=== PATIENT | female | born 1960 | race Caucasian/White ===

== ENCOUNTER 2025-02-13 12:56 | Emergency (ER) | payer BC ==
[2025-02-13 13:16] VITALS: BP 159/70; PULSE 78; RESP 20; TEMP 98.8; BMI 34.3
[2025-02-13 13:55] LABS: ABSOLUTE IMMATURE GRANULOCYTES 0.05 x10^3/uL (0.0-0.031); BASOPHILS # 0.02 x10^3/uL (0.01-0.08); EOSINOPHIL % 0.2 % (0.7-5.8); EOSINOPHILS # 0.02 x10^3/uL (0.04-0.36); MCHC 31.6 g/dl (32.2-35.5); MEAN CELL VOLUME 89.1 fl (79.4-94.8); MEAN PLT VOLUME 10.9 fl (9.4-12.3); MONOCYTE # 0.57 x10^3/uL (0.24-0.86); MONOCYTE % 4.8 % (4.7-12.5); RDW 13.6 % (12.4-16.4)
[2025-02-13] MEDS ORDERED: FAMOTIDINE 20 MG/50 ML IVPB 20 MG/50 ML MG IVPB ONE (13:58)
[2025-02-13] MEDS ORDERED: ONDANSETRON 4 MG/2 ML VIAL ONE (13:58)
[2025-02-13] MEDS ORDERED: ACETAMINOPHEN INJECTION 100 ML ONE (13:58)
[2025-02-13] MEDS ORDERED: MAG HYDROX/AL HYDROX/SIMETH 30 ML UNIT-DOSE CUP ONE (13:58)
[2025-02-13] MEDS: MAG HYDROX/AL HYDROX/SIMETH 30 ML UNIT-DOSE CUP PO ONE (14:01)
[2025-02-13] MEDS: ACETAMINOPHEN 1000 MG/100 ML BAG IVPB ONE (14:02)
[2025-02-13] MEDS: FAMOTIDINE 20 MG/50 ML IVPB 20 MG/50 ML MG IVPB ONE (14:02)
[2025-02-13] MEDS: ONDANSETRON 4 MG/2 ML VIAL IVPUSH ONE (14:03)
[2025-02-13] MEDS: morphine CARPU-JECT 4 MG/1 ML DISP.SYRIN IVPUSH ONE (14:06)
[2025-02-13] MEDS: ONDANSETRON 4 MG/2 ML VIAL IVPB ONE (14:10)
[2025-02-13 14:23] LABS: CO2 27.0 mmol/L (21-32); GLUCOSE,RANDOM 106.0 mg/dL (74-106)
[2025-02-13 14:27] LABS: CREATININE 0.8 mg/dL (0.55-1.3); SGOT/AST 331.0 U/L (15-37); SGPT/ALT 282.0 U/L (13-61)
[2025-02-13 14:28] LABS: TOT PROT 6.6 g/dl (6.4-8.2)
[2025-02-13 14:30] LABS: ALK PHOS 324.0 U/L (45-117)
[2025-02-13 15:59] LABS: HIV INTERPRETATION NEGATIVE (NEGATIVE)
[2025-02-13 16:04] LABS: HCV DIAGNOSTIC IN-HOUSE W/RFLX NON-REACTIVE (NONREACTIVE)
[2025-02-13 17:03] LABS: URINE APPEARANCE Clear; URINE BILIRUBIN Negative (NEGATIVE); URINE COLOR Other; URINE GLUCOSE (UA) Negative (NEGATIVE); URINE KETONE Negative (NEGATIVE); URINE LEUK ESTERASE Negative (NEGATIVE); URINE NITRITE Negative (NEGATIVE); URINE PROTEIN Negative (NEGATIVE); URINE UROBILINOGEN 1.0 mg/dL (0.2-1.0)
[2025-02-13] MEDS ORDERED: PIPERACILLIN/TAZOB 4.5 GM 4.5 GM/100 ML BAG IVPB ONE (17:24)
[2025-02-13] MEDS: PIPERACILLIN/TAZOB 4.5 GM 4.5 GM in DEXTROSE 5%-WATER 100 ML IVPB ONE (17:26)
[2025-02-13] MEDS: SODIUM CHLORIDE 0.9% 500 ML INFUS.BAG IV ONE (17:27)
== END 2025-02-13 21:36 | disposition short-term general hospital (02) ==
LOC: JER 12:56
PROC: 3E033GC Introduction of Other Therapeutic Substance into Peripheral Vein, Percutaneous Approach (ICD-10-PCS; principal; 2025-02-13)
PROC: 3E03329 Introduction of Other Anti-infective into Peripheral Vein, Percutaneous Approach (ICD-10-PCS; 2025-02-13)
PROC: 3E033NZ Introduction of Analgesics, Hypnotics, Sedatives into Peripheral Vein, Percutaneous Approach (ICD-10-PCS; 2025-02-13)
PROC: 3E033NZ Introduction of Analgesics, Hypnotics, Sedatives into Peripheral Vein, Percutaneous Approach (ICD-10-PCS; 2025-02-13)
PROC: 3E033GC Introduction of Other Therapeutic Substance into Peripheral Vein, Percutaneous Approach (ICD-10-PCS; 2025-02-13)
DX: K86.89 Other specified diseases of pancreas (principal); K83.8 Other specified diseases of biliary tract; R10.13 Epigastric pain; R10.30 Lower abdominal pain, unspecified; R07.9 Chest pain, unspecified; M54.9 Dorsalgia, unspecified; R11.0 Nausea; R06.02 Shortness of breath
CPT/HCPCS: 36415; 71045-TC-FY; 71275-TC; 74174-TC; 80053; 81003; 83690; 84484; 85025; 86803; 87086; 87389; 87637-QW; 93005; 93010; 99285-25; Q9967